=== PATIENT | male | born 1950 | race Caucasian/White ===

== ENCOUNTER 2017-03-14 09:37 | Day surgery (SDC) | payer OTHER ==
[2017-03-13 12:55] VITALS: Ht 175.3 cm; Wt 87.7 kg
[~2017-03-14] VITALS: Ht 175.3 cm; Wt 87.7 kg
[2017-03-14] VITALS (17 sets, daily range): BP systolic 95–125; BP diastolic 69–82; PULSE 56–80; RESP 9–18
[~2017-03-14 09:37] MED LIST: CIPROFLOXACIN 400 MG in D5W 200 ML IVPB SCH; ESCI10TA PO; ESCI20TA PO; LAMO150T15 PO; LORA-186 PO
[2017-03-14] MEDS ORDERED: ALFU10TA28 PO (11:58)
[2017-03-14] MEDS ORDERED: MIDAZOLAM 1 MG/ML 2 ML INJ ONE (14:08)
[2017-03-14] MEDS ORDERED: GLYCOPYRROLATE 0.4 MG INJ ONE ×2 (14:17→15:07)
[2017-03-14] MEDS ORDERED: SUCCINYLCHOLINE CHLORIDE 100 MG/5 ML SYG IV ONE (14:17)
[2017-03-14] MEDS ORDERED: ROCURONIUM 50 MG INJ ONE (14:17)
[2017-03-14] MEDS ORDERED: PROPOFOL 20 ML ONE (14:17)
[2017-03-14] MEDS ORDERED: MEPERIDINE 100 MG INJ ONE (14:17)
[2017-03-14] MEDS ORDERED: LIDOCAINE 2% (SDV) 5 ML INJ ONE (14:17)
[2017-03-14] MEDS ORDERED: NEOSTIGMINE 3 MG/3 ML SYRINGE ONE ×2 (14:17→15:07)
[2017-03-14] MEDS ORDERED: ONDANSETRON 4 MG INJ ONE (14:38)
--- NOTE | 2017-03-14 15:22 | HP ---
DATE OF ADMISSION: 03/14/2017 HISTORY OF PRESENT ILLNESS: Israel Bazzi is a 66-year-old male with a history of pyelonephritis, frequency, urgency and urge incontinence. Cystoscopy in the office demonstrated a large bladder tumor on the left lateral wall extending onto the dome of the bladder. At this time cystoscopy was limited secondary to patient's discomfort and now presents for cystoscopy and transurethral resection of the bladder tumor. PAST MEDICAL HISTORY: Hypertension, bipolar disease, and iliac aneurysm. SURGICAL HISTORY: Foot surgery. ALLERGIES: NONE. MEDICATIONS: 1. Concerta 54 mg p.o. daily. 2. Cozaar 50 mg p.o. q. p.o. daily. 3. Lexapro 20 mg p.o. daily. 4. UroXatral 10 mg after dinner. PHYSICAL EXAMINATION: LUNGS: Good breath sounds bilaterally. HEART: Regular rate and rhythm. ABDOMEN: Soft, nondistended, nontender. No palpable masses. No CVA tenderness. No masses. IMPRESSION: Bladder cancer. PLAN: TURBT. How the procedure is performed, potential complications, side effects, were all reviewed. Additionally, we did discuss the potential for perforation, inability to remove all tumor, blood loss requiring transfusion, staged intervention, urethral injury as well as injury to surrounding structures. Should cancer be amenable to insertion mitomycin. This additionally will be placed later after the procedure. Postoperative course including indwelling Ames catheter and prompt removal all reviewed. He understands the above and would like to proceed. In the office he did review and sign a consent for a TURBT. Dictated By: Rocael Jones MD /[email or web address]/berenice /Document#: [id number]
--- NOTE | 2017-03-14 15:36 | OPR ---
Date/Time of Note Date/Time of Note DATE: 03/14/17 TIME: 15:33 Operative Report Procedure Date: Mar 14, 2017 Preoperative Diagnosis Bladder cancer Postoperative Diagnosis same Operation Performed TURBT large bladder tumor, coagulation of bladder neck and prostatic fossa Surgeon: OXANA DOHERTY Anesthesia Type: general Estimated Blood Loss: none Transfusion Required: no Specimens bladder tumor Tubes/Drains [address] left to gravity drainage Complications: no Pt Condition Post Procedure: stable Disposition: PACU Indications BT Operative\Procedure Findings full note dictated [id number] OXANA DOHERTY Mar 14, 2017 15:36
--- NOTE | 2017-03-14 15:39 | PDOCDIS ---
Discharge Instructions CONDITION Patient Condition: Good HOME CARE INSTRUCTIONS: Diet Instructions: Regular ACTIVITY: Activity Restrictions: Avoid heavy lifting Bathing Restrictions: Shower FOLLOW UP/APPOINTMENTS Follow-up Plan [facility] March 20, 2017 at 8:30 AM for removal of Ames Drink large amounts of water. OTHER ORDERS: Other Orders: Ames to leg bag - gravity drainage bag SCHOOL/WORK RELEASE May return to School/Work on: Mar 26, 2017 OXANA DOHERTY Mar 14, 2017 15:39
[2017-03-14] MEDS ORDERED: HYDROmorphONE (0.2 MG/ML) 10ML SYG IV ONE (16:18)
[2017-03-14] MEDS: HYDROmorphONE (0.2 MG/ML) 10ML SYG IV PRN ×4 (16:20→16:45)
--- NOTE | 2017-03-14 19:48 | OPR ---
DATE OF OPERATION: 03/14/2017 PREOPERATIVE DIAGNOSIS: Bladder cancer. POSTOPERATIVE DIAGNOSIS: Bladder cancer. OPERATIVE PROCEDURE: Cystoscopy, transurethral resection of large bladder tumor. Coagulation of bladder neck and prostatic fossa. ANESTHESIA: General. COMPLICATIONS: None. FINDINGS: Large bladder tumor extending from left lateral wall onto the dome of the bladder and onto the bladder neck. PATHOLOGY: Bladder tumor. COMPLICATIONS: None. BRIEF HISTORY: Israel Bazzi is a 66-year-old male with a large bladder tumor presenting for TURBT. OPERATIVE PROCEDURE: The patient was brought into the operating room and placed on the operating room table in the supine lithotomy position. He was prepped and draped in the usual fashion. After anesthesia was induced, a time-out was undertaken. Appropriate pressure points are padded. He received preoperative antibiotic therapy. Sequential compression devices were applied. Rigid cystoscopy was undertaken with a 12-degree, 30-degree and 70-degree angle lens. No abnormalities of the anterior urethra could be appreciated. Trilobar enlargement of the prostatic lobes were noted with multiple dilated blood vessels extending from the prostatic fossa onto the bladder neck. Bilateral ureteral orifices are within normal limits and well preserved throughout the entire case from the level of the bladder neck onto the left lateral wall and onto the dome of the bladder was a large obstructing papillary tumor, which did not allow for complete visualization of the posterior wall. No other tumor could be appreciated. Utilizing the Olympus continuous resectoscope/bipolar, a transurethral resection of bladder tumor was undertaken with care being taken to the surrounding bladder wall. This was technically challenging due to the location and size of the tumor. The tumor extended behind the bladder neck at the 11 o'clock position. Slowly, the tumor was resected, which revealed a very broad base stalk. This was dissected down to the level of the bladder wall, which then allowed for pinpoint hemostasis. Utilizing the Ellik evacuated, tumor burden was removed and sent to pathology for further evaluation. Oozing from the bladder neck was appreciated, which extended into the proximal urethra of which pinpoint coagulation of the bladder neck and proximal prostatic fossa was undertaken. This was undertaken from the 11 o'clock to 1 o'clock position and also on the median lobe. Only the proximal 1/3 of the prostatic fossa was coagulated. The verumontanum was identified and preserved throughout the entire case. At this juncture, thorough hemostasis was noted. A 3-way Ames catheter was inserted. The 22-Ind[place] 3-way Ames catheter was inserted into the bladder, and the balloon was inflated. The efflux was noted to be clear, and thus, this was left to gravity drainage. He tolerated the procedure well and will be transferred to recovery room in stable condition. DISCHARGED MEDICATIONS: [place] 1-2 tabs p.o. q.6 hours p.r.n., dispense number 30, no refill. DISCHARGE INSTRUCTIONS: He will follow up in the office on Sunday for a trial void. Further intervention evaluation pending clinical course and results of above. Due to the significant amount of resection that was undertaken overlying the dome of the bladder, it was decided not to instill mitomycin today. Dictated By: Rocael Jones MD /fatoumata/loraine /Document#: [id number]
== END 2017-03-14 18:34 | disposition home or self-care (01) ==
LOC: SDS 09:37
PROVIDERS: ATTEND Urology
DX: D49.4 Neoplasm of unspecified behavior of bladder (principal); C67.9 Malignant neoplasm of bladder, unspecified; I10 Essential (primary) hypertension
CPT/HCPCS: 52235; 88305; J0744; J1170; J2175; J2250; J2405; J2710; Z7512; Z7610; J7999